=== PATIENT | female | born 1945 | race African-American/Black ===

== ENCOUNTER 2019-03-20 20:19 | Emergency (ER) | payer MEDICARE, MEDICAID ==
[~2019-03-20] VITALS: Ht 160 cm; Wt 59.0 kg
--- NOTE | 2019-03-20 20:20 | NUR ---
ED Nurse Note: jose elias lee 24 c/o back pain x 4 hours with nausea and dizziness
[2019-03-20 20:22] VITALS: BP 164/79
--- NOTE | 2019-03-20 20:38 | Emergency Room Report ---
History of Present Illness General Chief Complaint: Pain Source: Patient Present Illness HPI 73-year-old female presents with, patient states she felt dehydrated, lied down 6 hours ago, woke up, she thinks she may have slept on a rock, complains of sharp rib pain bilaterally, aggravated with touch, alleviated by not touching it she is worried she may have broken her ribs, she denies heart pain, shortness of breath, nausea vomiting, dyspnea on exertion, patient states it only hurts when you touch her ribs, she denies any fevers chills, abdominal pain , patient presents for evaluation Allergies: Coded Allergies: No Known Allergies (Unverified , 03/20/19) Patient History Past Medical History: see triage record Now: No Reviewed Nursing Documentation: PMH: Agreed; PSxH: Agreed Nursing Documentation-PMH Past Medical History: No Stated History Review of Systems Constitutional: Denies: chills, fever Eye: Denies: blurred vision, double vision ENT: Denies: throat pain, nasal discharge Respiratory: Denies: cough, shortness of breath Cardiovascular: Reports: chest pain - Bilateral rib pain; Denies: palpitations Gastrointestinal: Denies: abdominal pain, diarrhea, nausea, vomiting Genitourinary: Denies: pain Musculoskeletal: Denies: back pain, muscle pain Skin: Denies: rash, lesions Neurological: Denies: headache, focal weakness Hematologic/Lymphatic: Denies: easy bleeding, easy bruising All Other Systems: negative except mentioned in HPI Physical Exam Vital Signs Date Time Temp Pulse Resp B/P (MAP) Pulse Ox O2 Delivery O2 Flow Rate FiO2 03/20/19 20:15 98.1 64 16 164/79 (107) 96 Sp02 EP Interpretation: reviewed, normal General Appearance: well appearing, no apparent distress, alert Head: normocephalic, atraumatic Eyes: bilateral eye PERRL, bilateral eye EOMI ENT: uvula midline, moist mucus membranes Neck: supple, thyroid normal, supple/symm/no masses Respiratory: lungs clear, no respiratory distress, no retraction, no accessory muscle use Cardiovascular #1: normal peripheral pulses, regular rate, rhythm, no edema, no gallop, no murmur, other - Bilateral rib pain bilaterally 5/6, tender to palpation, no crepitus, no displacement felt Cardiovascular #2: 2+ radial (R), 2+ radial (L) Gastrointestinal: non tender, soft, no guarding, no rebound Musculoskeletal: normal inspection Neurologic: alert, oriented x3 Psychiatric: mood/affect normal Skin: no rash, warm/dry Medical Decision Making Diagnostic Impression: Primary Impression: Rib pain on left side Additional Impression: Rib pain on right side ER Course 73-year-old female patient denies any medical problems, heart score of 3, based on age possible risk factor of hypertension, patient is sleeping comfortably in bed, patient felt better with Toradol administration, patient is requesting stronger pain medications, low suspicion for ACS given her story, strict return precautions were discussed. No Fractures noted on x-ray no acute cardiopulmonary processes No evidence of ACS, pulmonary embolism, pneumothorax, pneumonia. Historically not abrupt in onset, tearing or ripping, pulses symmetric, no evidence of aortic dissection. Patient states she slept on some vita, which may have grinding against her ribs, patient is requesting for something strong, patient counseled that she should only take ibuprofen or Tylenol, no indications for opioids Dispo home with return precautions Laboratory Tests Test 03/20/19 21:00 White Blood Count 10.4 K/UL (4.8-10.8) Red Blood Count 4.76 M/UL (4.20-5.40) Hemoglobin 12.7 G/DL (12.0-16.0) Hematocrit 39.3 % (37.0-47.0) Mean Corpuscular Volume 83 FL (80-99) Mean Corpuscular Hemoglobin 26.7 PG (27.0-31.0) L Mean Corpuscular Hemoglobin Concent 32.3 G/DL (32.0-36.0) Red Cell Distribution Width 13.0 % (11.6-14.8) Platelet Count 220 K/UL (150-450) Mean Platelet Volume 10.0 FL (6.5-10.1) Neutrophils (%) (Auto) % (45.0-75.0) Lymphocytes (%) (Auto) % (20.0-45.0) Monocytes (%) (Auto) % (1.0-10.0) Eosinophils (%) (Auto) % (0.0-3.0) Basophils (%) (Auto) % (0.0-2.0) Differential Total Cells Counted 100 Neutrophils % (Manual) 87 % (45-75) H Lymphocytes % (Manual) 10 % (20-45) L Monocytes % (Manual) 3 % (1-10) Eosinophils % (Manual) 0 % (0-3) Basophils % (Manual) 0 % (0-2) Band Neutrophils 0 % (0-8) Platelet Estimate Adequate Platelet Morphology Normal Red Blood Cell Morphology Normal Sodium Level 140 MMOL/L (136-145) Potassium Level 4.1 MMOL/L (3.5-5.1) Chloride Level 103 MMOL/L (98-107) Carbon Dioxide Level 26 MMOL/L (21-32) Anion Gap 11 mmol/L (5-15) Blood Urea Nitrogen 13 mg/dL (7-18) Creatinine 1.0 MG/DL (0.55-1.30) Estimate Glomerular Filtration Rate mL/min (>60) Glucose Level 118 MG/DL (74-106) H Calcium Level 9.7 MG/DL (8.5-10.1) Total Bilirubin 0.5 MG/DL (0.2-1.0) Aspartate Amino Transferase (AST) 24 U/L (15-37) Alanine Aminotransferase (ALT) 12 U/L (12-78) Alkaline Phosphatase 93 U/L (46-116) Total Creatine Kinase 105 U/L (26-308) Creatine Kinase MB < 0.5 NG/ML (0.0-3.6) Creatine Kinase MB Relative Index 0.4 Troponin I 0.000 ng/mL (0.000-0.056) Total Protein 7.7 G/DL (6.4-8.2) Albumin 4.5 G/DL (3.4-5.0) Globulin 3.2 g/dL Albumin/Globulin Ratio 1.4 (1.0-2.7) EKG Diagnostic Results EKG Time: 20:46 EP Interpretation: NSR, rate 67, QTc 448, no acute ST elevations, left axis dev Rate: normal Rhythm: NSR ST Segments: no acute changes ASA given to the pt in ED: No Rhythm Strip Diag. Results Rhythm Strip Time: 21:59 EP Interpretation: yes Rate: 62 Rhythm: NSR, no PVC's, no ectopy Last Vital Signs Date Time Temp Pulse Resp B/P (MAP) Pulse Ox O2 Delivery O2 Flow Rate FiO2 03/20/19 20:22 98.1 64 16 164/79 96 Disposition: HOME, SELF-CARE Condition: Improved Scripts Naproxen* (NAPROSYN*) 250 Mg Tablet 500 MG ORAL BID PRN for For Pain, #20 TAB 0 Refills Prov: Cole Davis M.D. 03/20/19 Patient Instructions: Chest Contusion, [id number] Additional Instructions: The patient was provided with discharge instructions, notified to follow-up with a primary care doctor and or specialist in the next 24-48 hours, and to return to the ED if they have worsening of their symptoms. Please note that this report is being documented using [employer] technology. This can lead to erroneous entry secondary to incorrect interpretation by the dictating instrument. Cole Davis M.D. Mar 20, 2019 20:38
[2019-03-20] MEDS ORDERED: Ketorolac 30mg Inj IV ONE (20:45)
[2019-03-20 21:16] LABS: HEMATOCRIT 39.3 % (37.0-47.0); HEMOGLOBIN 12.7 G/DL (12.0-16.0); MEAN CORPUSCULAR VOLUME 83 FL (80-99); PLATELET COUNT 220 K/UL (150-450); RED BLOOD COUNT 4.76 M/UL (4.20-5.40); WHITE BLOOD COUNT 10.4 K/UL (4.8-10.8)
[2019-03-20 21:23] LABS: ANION GAP 11 mmol/L (5-15); BLOOD UREA NITROGEN 13 mg/dL (7-18); CALCIUM 9.7 MG/DL (8.5-10.1); CARBON DIOXIDE 26 MMOL/L (21-32); CHLORIDE 103 MMOL/L (98-107); POTASSIUM 4.1 MMOL/L (3.5-5.1); SODIUM 140 MMOL/L (136-145)
[2019-03-20 21:36] LABS: ALANINE AMINOTRANSFERASE 12 U/L (12-78); ALBUMIN 4.5 G/DL (3.4-5.0); ALBUMIN/GLOBULIN RATIO 1.4 (1.0-2.7); ALKALINE PHOSPHATASE 93 U/L (46-116); ASPARTATE AMINO TRANSFERASE 24 U/L (15-37); BILIRUBIN,TOTAL 0.5 MG/DL (0.2-1.0); CKMB < 0.5 NG/ML (0.0-3.6); CREATINE KINASE 105 U/L (26-308)
[2019-03-20] MEDS ORDERED: NAPROXEN250 MG ORAL (21:59)
[2019-03-20] MEDS ORDERED: Naproxen 500mg tab ORAL ONE (22:00)
[2019-03-20] MEDS ORDERED: Naproxen 500mg tab ONE (22:02)
[2019-03-20 22:14] VITALS: BP 161/76
--- NOTE | 2019-03-20 22:15 | NUR ---
ER DISCHARGE NOTE: Patient is cleared to be discharged per ERMD, pt is aox4, on room air, with stable vital signs. pt was given dc and prescription instructions, pt was able to verbalize understanding, pt id band and iv site removed without complications. pt is able to ambulate with steady gait. pt took all belongings.
--- NOTE | 2019-03-21 14:30 | Diagnostic Imaging Report ---
Indication: Chest pain. Chest trauma Comparison: None A single view chest radiograph was obtained. Findings: There is some prominence of the interstitium, nonspecific in nature. No pneumothorax identified. Heart is enlarged. Bones are osteopenic. No definite rib fractures. IMPRESSION: No acute findings
== END 2019-03-20 22:15 | disposition home or self-care (01) ==
LOC: EDBD 20:19 → EMR 21:04
DX: R07.81 Pleurodynia (principal); R07.9 Chest pain, unspecified
CPT/HCPCS: 36415; 71045; 80053; 82550; 82553; 84484; 85007; 85025; 93005; 96361; 96374; 99284; J1885